=== PATIENT | male | born 1975 | race Caucasian/White ===

== ENCOUNTER → 2020-05-12 | Outpatient (CLI) | payer MEDICAID ==
--- NOTE | 2020-05-13 09:31 | XR ---
Left knee HISTORY: Pain 3 views the left knee Suprapatellar increased density is consistent with joint effusion. There is no fracture or dislocatio n. Bone mineralization, joint spaces and alignment are maintained. Mild remodeling present in the med ial compartment, marginal spurring. IMPRESSION: Suprapatellar joint effusion.
== END | disposition home or self-care (01) ==
LOC: RADXRYALE 16:28
PROVIDERS: ATTEND Physician Assistant Medical
DX: M25.462 Effusion, left knee (principal)

== ENCOUNTER 2020-10-13 21:51 | Emergency (ER) | payer MEDICAID ==
[2020-10-13 22:24] VITALS: RESP 18
--- NOTE | 2020-10-13 22:51 | XR ---
EXAMINATION TYPE: XR chest 1V DATE OF EXAM: 10/13/2020 COMPARISON: 09/20/2015 HISTORY: Cough TECHNIQUE: Single view FINDINGS: There is some mild increased interstitial and airspace density in the right mid lung field consistent with pneumonia. Heart size is normal. There is no pleural effusion. Left lung is fairly cl ear. Bony thorax is intact. IMPRESSION: There is evidence of some new diffuse pneumonia in the right midlung field compared to ol d exam. Normal heart.
[2020-10-13] MEDS ORDERED: ALBUTEROL HFA INHALER INHALATION STA (23:37)
[2020-10-13] MEDS ORDERED: DEXAMETHASONE SOD PHOSPHATE 10 MG/ML 1 ML VIAL IV STA (23:37)
[2020-10-13] MEDS ORDERED: KETOROLAC 15 MG/ML 1 ML VIAL IVP STA (23:37)
[2020-10-13] MEDS ORDERED: SODIUM CHLORIDE 0.9% 1,000 ML IV STA ×2 (23:37)
[2020-10-13] MEDS ORDERED: ACETAMINOPHEN TAB 500 MG TAB PO STA (23:37)
--- NOTE | 2020-10-14 00:22 | ED ---
Fever HPI - General Chief Complaint: Fever Stated Complaint: Pneumonia Time Seen by Provider: 10/13/20 23:36 Source: patient, RN notes reviewed, old records reviewed Mode of arrival: ambulatory Limitations: no limitations - History of Present Illness Initial Comments: This is a 45-year-old male DF for evaluation does have history of pneumonia. Patient has fever some shortness of breath. Patient resents today for evaluation regarding the above. Patient has recent travel history but does have significant sick contacts albuterol coronavirus. No prior history of coronavirus and no vaccine history MD Complaint: fever, malaise, other (Shortness of breath and cough) -: days(s) Temperature Source: subjective Context: multiple patients with similar symptoms Associated Symptoms: chills, myalgias, sore throat, cough, chest pain Treatments Prior to Arrival: none - Related Data Allergies Allergy/AdvReac Type Severity Reaction Status Date / Time meperidine [From Demerol] Allergy Unknown Verified 10/13/20 22:25 codeine AdvReac Nausea Verified 10/13/20 22:25 Review of Systems ROS Statement: Those systems with pertinent positive or pertinent negative responses have been documented in the HPI. ROS Other: All systems not noted in ROS Statement are negative. Past Medical History Additional Past Medical History / Comment(s): pneumonia. testicular cx. hypertension History of Any Multi-Drug Resistant Organisms: None Reported Additional Past Surgical History / Comment(s): testicular Past Psychological History: No Psychological Hx Reported Smoking Status: Never smoker Past Alcohol Use History: None Reported Past Drug Use History: None Reported General Exam Limitations: no limitations General appearance: alert, in no apparent distress Head exam: Present: atraumatic, normocephalic, normal inspection Eye exam: Present: normal appearance, PERRL, EOMI. Absent: scleral icterus, conjunctival injection, periorbital swelling ENT exam: Present: normal exam, mucous membranes moist Neck exam: Present: normal inspection. Absent: tenderness, meningismus, lymphadenopathy Respiratory exam: Present: normal lung sounds bilaterally. Absent: respiratory distress, wheezes, rales, rhonchi, stridor Cardiovascular Exam: Present: regular rate, normal rhythm, normal heart sounds. Absent: systolic murmur, diastolic murmur, rubs, gallop, clicks GI/Abdominal exam: Present: soft, normal bowel sounds. Absent: distended, tenderness, guarding, rebound, rigid Extremities exam: Present: normal inspection, full ROM, normal capillary refill. Absent: tenderness, pedal edema, joint swelling, calf tenderness Back exam: Present: normal inspection Neurological exam: Present: alert, oriented X3, CN II-XII intact Psychiatric exam: Present: normal affect, normal mood Skin exam: Present: warm, dry, intact, normal color. Absent: rash Course Vital Signs 10/13/20 22:21 Temperature 100.9 F H Pulse Rate 98 Respiratory 18 Rate Blood Pressure 135/85 O2 Sat by Pulse 93 L Oximetry - Reevaluation(s) Reevaluation #1: 10/14/20 01:02 Medical record is reviewed Reevaluation #2: 10/14/20 01:02 Patient has no significant distress Reevaluation #3: 10/14/20 01:02 Patient is informed of results positive coronavirus, will accept BAM treatment Medical Decision Making - Medical Decision Making 45 male DF for evaluation coronavirus patient. Patient will be given Bham here in the ER discharged home - Lab Data Result diagrams: 10/14/20 00:20 10/14/20 00:20 Lab Results 10/14/20 10/14/20 10/14/20 Range/Units 00:09 00:20 00:20 WBC 5.4 (3.8-10.6) k/uL RBC 5.56 (4.30-5.90) m/uL Hgb 16.9 (13.0-17.5) gm/dL Hct 49.5 (39.0-53.0) % MCV 89.0 (80.0-100.0) fL MCH 30.4 (25.0-35.0) pg MCHC 34.1 (31.0-37.0) g/dL RDW 13.3 (11.5-15.5) % Plt Count 137 L (150-450) k/uL MPV 7.4 Neutrophils % 78 % Lymphocytes % 14 % Monocytes % 6 % Eosinophils % 0 % Basophils % 0 % Neutrophils # 4.2 (1.3-7.7) k/uL Lymphocytes # 0.8 L (1.0-4.8) k/uL Monocytes # 0.3 (0-1.0) k/uL Eosinophils # 0.0 (0-0.7) k/uL Basophils # 0.0 (0-0.2) k/uL PT 10.2 (9.0-12.0) sec INR 0.9 (<1.2) APTT 25.4 (22.0-30.0) sec Sodium (137-145) mmol/L Potassium (3.5-5.1) mmol/L Chloride (98-107) mmol/L Carbon Dioxide (22-30) mmol/L Anion Gap mmol/L BUN (9-20) mg/dL Creatinine (0.66-1.25) mg/dL Est GFR (CKD-EPI)AfAm (>60 ml/min/1.73 sqM) Est GFR (CKD-EPI)NonAf (>60 ml/min/1.73 sqM) Glucose (74-99) mg/dL Calcium (8.4-10.2) mg/dL Magnesium (1.6-2.3) mg/dL Total Bilirubin (0.2-1.3) mg/dL AST (17-59) U/L ALT (4-49) U/L Alkaline Phosphatase (38-126) U/L Lactate Dehydrogenase (313-618) U/L C-Reactive Protein (<10.0) mg/L Total Protein (6.3-8.2) g/dL Albumin (3.5-5.0) g/dL Coronavirus (PCR) Detected A (Not Detectd) 10/14/20 Range/Units 00:20 WBC (3.8-10.6) k/uL RBC (4.30-5.90) m/uL Hgb (13.0-17.5) gm/dL Hct (39.0-53.0) % MCV (80.0-100.0) fL MCH (25.0-35.0) pg MCHC (31.0-37.0) g/dL RDW (11.5-15.5) % Plt Count (150-450) k/uL MPV Neutrophils % % Lymphocytes % % Monocytes % % Eosinophils % % Basophils % % Neutrophils # (1.3-7.7) k/uL Lymphocytes # (1.0-4.8) k/uL Monocytes # (0-1.0) k/uL Eosinophils # (0-0.7) k/uL Basophils # (0-0.2) k/uL PT (9.0-12.0) sec INR (<1.2) APTT (22.0-30.0) sec Sodium 135 L (137-145) mmol/L Potassium 4.1 (3.5-5.1) mmol/L Chloride 99 (98-107) mmol/L Carbon Dioxide 25 (22-30) mmol/L Anion Gap 11 mmol/L BUN 27 H (9-20) mg/dL Creatinine 1.00 (0.66-1.25) mg/dL Est GFR (CKD-EPI)AfAm >90 (>60 ml/min/1.73 sqM) Est GFR (CKD-EPI)NonAf >90 (>60 ml/min/1.73 sqM) Glucose 139 H (74-99) mg/dL Calcium 9.1 (8.4-10.2) mg/dL Magnesium 1.8 (1.6-2.3) mg/dL Total Bilirubin 0.9 (0.2-1.3) mg/dL AST 45 (17-59) U/L ALT 49 (4-49) U/L Alkaline Phosphatase 77 (38-126) U/L Lactate Dehydrogenase 861 H (313-618) U/L C-Reactive Protein 36.2 H (<10.0) mg/L Total Protein 6.7 (6.3-8.2) g/dL Albumin 4.0 (3.5-5.0) g/dL Coronavirus (PCR) (Not Detectd) - EKG Data -: EKG Interpreted by Me (EKG shows sinus rhythm 87. 160 QRS 84 QTc 411) - Radiology Data Radiology results: report reviewed (Chest x-ray positive for coronavirus pna), image reviewed Disposition Clinical Impression: Fever, Coronavirus infection, Pneumonia due to COVID-19 virus Disposition: HOME SELF-CARE Condition: Good Instructions (If sedation given, give patient instructions): Coronavirus Disease 2019 (COVID-19) Is patient prescribed a controlled substance at d/c from ED?: No Referrals: Poncho Chamberlain DO [Primary Care Provider] - 1-2 days
[2020-10-14 00:32] LABS: Basophils % (A) 0 %; Eosinophils % (A) 0 %; HCT 49.5 % (39.0-53.0); HGB 16.9 gm/dL (13.0-17.5); Lymphocytes # (A) 0.8 k/uL (1.0-4.8); Lymphocytes % (A) 14 %; MCH 30.4 pg (25.0-35.0); MCHC 34.1 g/dL (31.0-37.0); Mean Platelet Volume 7.4; Monocytes # (A) 0.3 k/uL (0-1.0); Monocytes % (A) 6 %; Neutrophils # (A) 4.2 k/uL (1.3-7.7); Neutrophils % (A) 78 %; Platelet Count 137 k/uL (150-450); RBC 5.56 m/uL (4.30-5.90); RDW 13.3 % (11.5-15.5); WBC 5.4 k/uL (3.8-10.6)
[2020-10-14 00:52] LABS: INR 0.9 (<1.2); Partial Thromboplastin Time 25.4 sec (22.0-30.0); Prothrombin Time 10.2 sec (9.0-12.0)
[2020-10-14 00:53] LABS: ALT 49 U/L (4-49); AST 45 U/L (17-59); African American GFR (CKD) >90 (>60 ml/min/1.73 sqM); Alkaline Phosphatase 77 U/L (38-126); Anion Gap 11 mmol/L; Blood Urea Nitrogen 27 mg/dL (9-20); C Reactive Protein 36.2 mg/L (<10.0); Calcium 9.1 mg/dL (8.4-10.2); Carbon Dioxide 25 mmol/L (22-30); Chloride 99 mmol/L (98-107); Glucose 139 mg/dL (74-99); LDH 861 U/L (313-618); Magnesium 1.8 mg/dL (1.6-2.3); Non-African American GFR(CKD) >90 (>60 ml/min/1.73 sqM); Potassium 4.1 mmol/L (3.5-5.1); Sodium 135 mmol/L (137-145); Total Bilirubin 0.9 mg/dL (0.2-1.3); Total Protein 6.7 g/dL (6.3-8.2)
[2020-10-14] MEDS ORDERED: BAMLANIVIMAB (EUA) 700 MG, ETESEVIMAB (EUA) 1,400 MG in SODIUM CHLORIDE 0.9% 50 ML IVPB ONE (02:00)
[2020-10-14] MEDS ORDERED: ALBUTEROL HFA INHALER INHALATION SCH (02:00)
[2020-10-14 02:43] VITALS: BP 108/66; PULSE 90; TEMP 98.7
== END 2020-10-14 03:49 | disposition home or self-care (01) ==
LOC: EC 21:51
DX: U07.1 COVID-19 (principal); J12.82 Pneumonia due to coronavirus disease 2019; Z88.5 Allergy status to narcotic agent
CPT/HCPCS: 36415; 94640; 93005; 80053; 83615; 83735; 85025; 85610; 85730; 86140; 84145; 87635; 71045; 96365; 96375 ×2; 96361; 99284; J1100; J1885; Q0245

== ENCOUNTER → 2022-03-22 | Outpatient (CLI) | payer MEDICAID ==
--- NOTE | 2022-03-22 17:00 | P.SLEEP ---
History of Present Illness DATE: 03/22/2022 CONSULTATION/NEW PATIENT EVALUATION HISTORY OF PRESENT ILLNESS/SLEEP-WAKE EVALUATION: 46 year old gentleman had been evaluated in the sleep center for possible obstructive sleep apnea hypopnea syndrome. SLEEP SCHEDULE: Usually sleep schedule on weekdaysfrom 9 PM to 3 AM], during days of from 9 PM to 7 AM]. FALLING ASLEEP: No problems with falling asleep, although patient has TV set and bedroom]. DURING SLEEP:According to patient he snores loudly and has witnessed episodes of stop breathing during the sleep. Positive history of restless legs and heartburn. Patient wakes up from sleep once with nocturia] No history of hypnogogical hallucinations, sleep paralysis, or cataplexy. DURING THE DAY/WAKE STATE: In the morning patient wake up tired, has episodes of irritability]. [place] sleepiness scale i significantly increased to 16] Patient may take up to 1-2 naps in the evening]. PAST MEDICAL HISTORY: Diabetes mellitus, hyperlipidemia, acid reflux, testicular cancer]. PAST SURGICAL HISTORY: Surgical treatment of testicular cancer testicular ectomy in 1992, arthroscopic knee surgery in 1992]. MEDICATIONS: Metformin 500 mg once a day, pravastatin, ritalin 20 mg twice a day]. SOCIAL HISTORY: History of smoking 1 pack per week on and off for 10 years, quit. Alcohol consumption occasional. FAMILY HISTORY:Not available, patient was adopted]. REVIEW OF SYSTEMS:Snoring, awakenings from sleep]. No fevers. No double vision. No recent chest pain. No shortness of breath. No abdominal pain. No bleeding episodes. No blood in urine. No seizure episodes. PHYSICAL EXAMINATION: GENERAL: A pleasant patient without any distress. VITAL SIGNS: BP152/76 , HR85] , R]R[16 , [id number] pounds, height5 t[8-1/2 ]inches, body mass index[ 39.4] . HEENT: PERRLA, EOMI. Evaluation of oropharynx showed tongue protrudes midline, low position of soft palate Mallampat 4]. NECK: Supple. No JVD. Thyroid is not palpable. 18] inches in circumference. LUNGS: Clear to percussion and to auscultation. Good air exchange. No wheezing or rhonchi. HEART: S1, S2 regular. No murmurs, gallops or rubs. ABDOMEN: Soft and nontender. Bowel sounds are present. No organomegaly appreciated. EXTREMITIES: No clubbing or cyanosis. BOWLING ALLEY OPERATOR: Awake, alert, and oriented x3. Cranial nerves 2 to 7 intact. There is no fasciculation or atrophy noted. No focal deficits observed. ASSESSMENT: 1. Loud snoring, witnessed sleep apneas, extremely low soft palate Mallampati 4, wide neck 18 inches in circumference, patient takes naps in the evening while on 40 mg of Ritalin. Obstructive sleep apnea hypopnea syndrome]. 2. Obesity, body mass index 39.4]. 3 hypertension in the office]. 4. Diabetes mellitus]. 5 acid reflux]. 6. Hyperlipidemia]. 7. History of testicular cancer, status post testicular ectomy and chemotherapy]. 8. 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 PLAN: 1. Polysomnography for evaluation of patient's breathing during sleep. 2. CPAP/BiPAP titration if sleep study confirms obstructive sleep apnea- hypopnea syndrome. 3. Preferable position during sleep on the side. 4. No driving if patient feels any sleepiness. Patient is aware of civil and criminal liability for unsafe driving. 5. Sleep hygiene with regular sleep time for at least 7.5-8 hours. 6. Watching and losing weight. Thank you very much for referring this patient for consultation. Sincerely, Gary Piper MD, PhD, FAASM. Diplomat of [place] [employer], Sleep Medicine Board by [place] Customer Support Specialist of [facility] [place] Past Medical History Additional Past Medical History / Comment(s): pneumonia. testicular cx. hypertension History of Any Multi-Drug Resistant Organisms: None Reported Additional Past Surgical History / Comment(s): testicular Past Psychological History: No Psychological Hx Reported Smoking Status: Never smoker Past Alcohol Use History: None Reported Past Drug Use History: None Reported Medications and Allergies Allergies Allergy/AdvReac Type Severity Reaction Status Date / Time meperidine [From Demerol] Allergy Unknown Verified 10/13/20 22:25 codeine AdvReac Nausea Verified 10/13/20 22:25 Sleep Note - Sleep Note Sleep Note: Temperature: Pulse Rate: Respiratory Rate: Blood Pressure: SpO2: Height: Weight: BMI: Neck Circumference:
== END ==
LOC: SLEEP 15:32
PROVIDERS: ATTEND Internal Medicine
DX: G47.33 Obstructive sleep apnea (adult) (pediatric) (principal); E66.9 Obesity, unspecified; Z68.39 Body mass index [BMI] 39.0-39.9, adult; I10 Essential (primary) hypertension; E11.9 Type 2 diabetes mellitus without complications; K21.9 Gastro-esophageal reflux disease without esophagitis; Z85.47 Personal history of malignant neoplasm of testis; Z87.891 Personal history of nicotine dependence; Z88.5 Allergy status to narcotic agent
CPT/HCPCS: 99211

== ENCOUNTER → 2022-06-14 | Outpatient (CLI) | payer MEDICAID ==
--- NOTE | 2022-06-14 16:52 | P.PN ---
Subjective DATE: 06/14/2022 FOLLOW UP VISIT. Patient returned to sleep center for follow-up visit to discuss results of diagnostic polysomnogram and following plan. I discussed results of polysomnogram with patient and family in details. Sleep study showed severe obstructive sleep apnea hypopnea syndrome, mostly related to hypopneas with apnea-hypopnea index 30.6, on the back position 43.2 with oxygen desaturation to 78.1%. Periodic limb movements also have been documented during the sleep study. . [place] sleepiness scale is 8, while patient is on treatment related with Ritalin for ADHD. I discussed with the patient and family options for treatment of severe obstructive sleep apnea hypopnea syndrome. MEDICATIONS:1. Metformin 500 mg once a day 2. Pravastatin 3. Ritalin 20 mg twice a day During physical exam: GENERAL: A 47 year old patient without distress. VITAL SIGNS: BP 135/88, HR 88, RR 16 , weight 263, temperature 98.0, oxygen saturation at room air 94% . HEENT: PERRLA, EOMI. extremely low position of soft palate Mallampati 4. NECK: Supple. No JVD. LUNGS: Clear to percussion and to auscultation. Good air exchange. No wheezing or rhonchi. HEART: S1, S2 regular. ABDOMEN: Soft and nontender. Obese EXTREMITIES: No clubbing or cyanosis. SOLAR PROJECT ENGINEER: Awake, alert, and oriented x3. No focal deficit. Impressions: 1. Severe obstructive sleep apnea hypopnea syndrome. 2. Obesity. 3. Diabetes mellitus. 4. Acid reflux. 5. History of testicular Cancer status post surgical treatment and chemotherapy. 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 Plan: 1. Patient was recommended to do CPAP titration because he has severe sleep apnea, but he refused to do the test. Patient will be started on AutoPAP treatment and should use equipment every night for the whole night. Patient may need desensitization with the nasal pillow mask. 2. Sleep hygiene with regular time in bed for at least 8 hours. 3. Losing weight. 4. Precautions related to driving. No driving if feel any sleepiness. Patient is aware about civil and criminal liability for unsafe driving. 5. Follow up visit in one months after patient will be started treatment with CPAP to evaluate clinical response on treatment, compliance with treatment and make any necessary adjustments related to mask fitting pressure and humidification. Thank you very much for allowing me to participate in the management of your patient. Gary Stefadu, MD, PhD, FAASM. Diplomat of [place] [employer], Sleep Medicine Board by [place] [employer] Fireboat Operator of [facility] [place]
== END ==
LOC: SLEEP 15:51
PROVIDERS: ATTEND Internal Medicine
DX: G47.33 Obstructive sleep apnea (adult) (pediatric) (principal); E66.9 Obesity, unspecified; E11.9 Type 2 diabetes mellitus without complications; K21.9 Gastro-esophageal reflux disease without esophagitis; Z98.890 Other specified postprocedural states; Z88.8 Allergy status to other drugs, medicaments and biological substances; Z88.5 Allergy status to narcotic agent; Z79.84 Long term (current) use of oral hypoglycemic drugs
CPT/HCPCS: 99212